=== PATIENT | male | born 1970 | race Caucasian/White ===

== ENCOUNTER 2016-12-16 02:11 | Emergency (ER) | payer MEDICAID ==
[2016-01-09 08:47] VITALS: BMI 30.4
[~2016-12-16 02:11] MED LIST: ASPIRIN325 MG PO; ASPIRIN81 MG PO; CARDIZEM120 MG PO; CARDURA2 MG PO; EFFIENT10 MG PO; LIPITOR10 MG PO; METOPROLOL TAR100 M1 PO; PLAVIX75 MG PO; PREDNISONE20 MG; XANAX1 MG PO; ZESTRIL40 MG PO
[2016-12-16 03:57] LABS: BASOPHILS 0.1 % (0.0-2.0); EOSINOPHILS 0.6 % (0-7); HEMATOCRIT 44.4 % (42.0-54.0); HEMOGLOBIN 15.9 g/dL (13.5-17.5); IMMATURE GRANULOCYTES 0.9 % (0-5); LYMPHOCYTES 12.6 % (15-50); MCH 31.8 pg (26.0-34.0); MCHC 35.8 g/dL (31.0-37.0); MCV 88.8 fL (80.0-100.0); MEAN PLATELET VOLUME 10.8 fL (7.4-10.4); MONOCYTES 6.8 % (2-11); RDW 13.3 % (11.5-14.5); WBC 12.4 10x3/uL (4.8-10.8)
[2016-12-16 04:04] LABS: PLATELET COUNT 146 10x3/uL (130-400)
[2016-12-16 04:10] LABS: ANION GAP 15.3 mmol/L (8-16); CALCIUM 8.3 mg/dL (8.5-10.1); CARBON DIOXIDE 23.4 mmol/L (21.0-32.0); CREATININE - SERUM 1.5 mg/dL (0.6-1.3); POTASSIUM - SERUM 3.7 mmol/L (3.5-5.1)
== END 2016-12-16 07:31 | disposition home or self-care (01) ==
LOC: D.ER 02:11
PROVIDERS: Emergency Medicine
DX: S40.021A Contusion of right upper arm, initial encounter (principal); V49.9XXA Car occupant (driver) (passenger) injured in unspecified traffic accident, initial encounter; Y93.89 Activity, other specified; Y92.410 Unspecified street and highway as the place of occurrence of the external cause; S20.219A Contusion of unspecified front wall of thorax, initial encounter; S62.202A Unspecified fracture of first metacarpal bone, left hand, initial encounter for closed fracture; S22.41XA Multiple fractures of ribs, right side, initial encounter for closed fracture; B19.20 Unspecified viral hepatitis C without hepatic coma; M79.7 Fibromyalgia; I10 Essential (primary) hypertension; F32.9 Major depressive disorder, single episode, unspecified

== ENCOUNTER 2016-12-21 15:53 | Emergency (ER) | payer MEDICAID ==
[2016-01-09 08:47] VITALS: BMI 30.4
[2016-12-21 19:29] LABS: CKMB 2.7 U/L (0.0-3.6); CREATINE KINASE 80 UL (21-232)
[2016-12-21 19:40] LABS: TROPONIN-I 0.071 ng/mL (0.000-0.060)
== END 2016-12-21 20:06 | disposition home or self-care (01) ==
LOC: D.ER 15:53
PROVIDERS: Emergency Medicine
DX: S22.41XG Multiple fractures of ribs, right side, subsequent encounter for fracture with delayed healing (principal); V89.2XXD Person injured in unspecified motor-vehicle accident, traffic, subsequent encounter; S20.211D Contusion of right front wall of thorax, subsequent encounter; S40.021D Contusion of right upper arm, subsequent encounter; S26.91XD Contusion of heart, unspecified with or without hemopericardium, subsequent encounter; B19.20 Unspecified viral hepatitis C without hepatic coma; I10 Essential (primary) hypertension; F32.9 Major depressive disorder, single episode, unspecified

== ENCOUNTER 2016-12-25 01:35 | Emergency (ER) | payer MEDICAID ==
[2016-01-09 08:47] VITALS: BMI 30.4
== END 2016-12-25 02:37 | disposition home or self-care (01) ==
LOC: D.ER 01:35
DX: K59.00 Constipation, unspecified (principal); K62.5 Hemorrhage of anus and rectum; B19.20 Unspecified viral hepatitis C without hepatic coma; I10 Essential (primary) hypertension; F32.9 Major depressive disorder, single episode, unspecified; F17.200 Nicotine dependence, unspecified, uncomplicated

== ENCOUNTER 2017-01-04 08:58 | Emergency (ER) | payer MEDICAID ==
[2016-01-09 08:47] VITALS: BMI 30.4
[2017-01-04 09:26] LABS: BASOPHILS 0.2 % (0.0-2.0); EOSINOPHILS 4.7 % (0-7); HEMATOCRIT 41.6 % (42.0-54.0); HEMOGLOBIN 14.3 g/dL (13.5-17.5); IMMATURE GRANULOCYTES 0.3 % (0-5); LYMPHOCYTES 15.5 % (15-50); MCH 31.4 pg (26.0-34.0); MCHC 34.4 g/dL (31.0-37.0); MCV 91.2 fL (80.0-100.0); MEAN PLATELET VOLUME 10.5 fL (7.4-10.4); MONOCYTES 8.4 % (2-11); NEUTROPHILS 70.9 % (40-80); PLATELET COUNT 164 10x3/uL (130-400); RBC 4.56 10x6/uL (4.20-6.10); WBC 9.6 10x3/uL (4.8-10.8)
[2017-01-04 09:43] LABS: ALBUMIN 3.7 g/dL (3.4-5.0); ANION GAP 14.5 mmol/L (8-16); BILIRUBIN - TOTAL 0.74 mg/dL (0.2-1.3); CALCIUM 8.8 mg/dL (8.5-10.1); CARBON DIOXIDE 29.2 mmol/L (21.0-32.0); CREATININE - SERUM 1.6 mg/dL (0.6-1.3); POTASSIUM - SERUM 3.7 mmol/L (3.5-5.1); PROTEIN - SERUM 7.2 g/dL (6.4-8.2)
== END 2017-01-04 11:35 | disposition home or self-care (01) ==
LOC: D.ER 08:58
PROVIDERS: Emergency Medicine
DX: S20.219A Contusion of unspecified front wall of thorax, initial encounter (principal); V89.2XXA Person injured in unspecified motor-vehicle accident, traffic, initial encounter; Y93.89 Activity, other specified; Y92.410 Unspecified street and highway as the place of occurrence of the external cause; S22.49XA Multiple fractures of ribs, unspecified side, initial encounter for closed fracture; J18.9 Pneumonia, unspecified organism; R73.9 Hyperglycemia, unspecified; B19.20 Unspecified viral hepatitis C without hepatic coma; I10 Essential (primary) hypertension

== ENCOUNTER → 2017-01-07 16:05 | Outpatient (CLI) | payer MEDICAID ==
[2016-01-09 08:47] VITALS: BMI 30.4
== END | disposition home or self-care (01) ==
LOC: D.RAD 16:05
DX: S22.43XA Multiple fractures of ribs, bilateral, initial encounter for closed fracture (principal)

== ENCOUNTER 2017-03-20 05:33 | Day surgery (SDC) | payer MEDICARE ==
[2017-03-19 12:36] LABS: HEMATOCRIT 46.8 % (42.0-54.0); HEMOGLOBIN 16.7 g/dL (13.5-17.5); MCH 31.1 pg (26.0-34.0); MCHC 35.7 g/dL (31.0-37.0); MCV 87.2 fL (80.0-100.0); MEAN PLATELET VOLUME 11.4 fL (7.4-10.4); RBC 5.37 10x6/uL (4.20-6.10); RDW 13.6 % (11.5-14.5); WBC 7.9 10x3/uL (4.8-10.8)
[~2017-03-20] VITALS: Ht 185.4 cm; Wt 108.9 kg
--- NOTE | ~2017-03-20 | OP ---
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 PROCEDURES PERFORMED: Left shoulder labral debridement, distal clavicle excision and subacromial decompression on to the scope. SURGEON: Mike Mendiola MD. ANESTHESIA: General interscalene block is given for postop pain. CONDITION: The patient tolerated the procedure well, was transferred to the recovery room in stable condition. INDICATIONS: This is a pleasant 46-year-old gentleman, who is having significant pain with overhead elevation. He has had no significant signs of a rotator cuff tear. He has not gotten any better. We discussed the options. He wanted to proceed with surgery. We discussed risks, benefits, and alternatives. He understood and wished to proceed. OPERATIVE REPORT: The patient was taken to the operating room and placed in supine position. General anesthesia was obtained. He did receive an interscalene block in the preop holding area. In the operating room, his left shoulder was confirmed to be the correct shoulder, following which it was prepped and draped in normal fashion. Procedure was begun by marking out portal sites and injecting them with 0.25% Marcaine with epinephrine. I established the scope in the posterior portal and under direct visualization, I established an anterior portal. He had some fairly significant labral fraying. I did debride this with a shaver. There was nothing that was repairable. The subscapularis was notably intact. Following the biceps tendon from its insertion down into the groove, everything looked good on the biceps tendon. I went back, followed the cuff, he had a little undersurface tear near the biceps hiatus, but I did not see anything further. Following the cuff all the around, it looked to be well attached. I therefore went back, took the scope out, placed it in the subacromial space, made a lateral portal, I debrided the soft tissue and bursa so I could see good undersurface of the acromion well. This was jutting down quite significantly as was undersurface of the AC joint. I therefore debrided both of these with a shaver and symone as well as cautery. Once this was well clear, I then brought the case to a close. He was stitched with 3-0 Prolene, awakened and transferred to the recovery room in stable condition having tolerated the procedure well. TRANSINT:[id number] Voice Confirmation ID: [id number] DOCUMENT ID: [id number] OPERATIVE REPORT [id number] FREDDIE SLOAN GORDON TROY MD CC: [id number] DICTATION DATE: 03/20/17802 WILLOW MACHINE TENDER: 03/20/17 1723 [facility] 03/20/17 [facility] [address] [place] [address]
[2017-03-20 05:54] VITALS: Ht 185.4 cm; Wt 108.9 kg
--- NOTE | 2017-03-20 07:32 | NUR ---
0648: PT STATED NO FAMILY PRESENT.
[2017-03-20] MEDS ORDERED: HYDROCODONE-APA1 TAB PO (07:55)
[2017-03-20] MEDS ORDERED: ROBAXIN-750750 MG PO (07:56)
--- NOTE | 2017-03-20 08:42 | NUR ---
PATIENT ARRIVED TO PACU WITH BP OF 164/116. 10 OF HYDRALAZINE GIVEN, BP DID NOT COME DOWN. ANOTHER 10 OF HYDRALAZINE GIVEN PER DR MOTA. BP PRE-OP BP 158/97
--- NOTE | 2017-03-20 10:40 | NUR ---
0930 IV DC WITH CATHER TIP INTACT
== END 2017-03-20 09:45 | disposition home or self-care (01) ==
LOC: D.OPS 05:33 → D.PAN 07:00 → D.OPS 08:15 → D.PAN 08:15 → D.OPS 09:45 → D.PAN 10:15 → D.OPS 10:15
PROVIDERS: Anesthesiology
DX: M75.42 Impingement syndrome of left shoulder (principal); S43.492A Other sprain of left shoulder joint, initial encounter; X58.XXXA Exposure to other specified factors, initial encounter; M19.012 Primary osteoarthritis, left shoulder; Z01.812 Encounter for preprocedural laboratory examination

== ENCOUNTER → 2017-06-03 09:20 | Outpatient (CLI) | payer MEDICARE ==
[2017-03-20 05:54] VITALS: BMI 31.7
[~2017-06-03 09:20] MED LIST changes: +HYDROCODONE-APA1 TAB PO; +ROBAXIN-750750 MG PO
== END | disposition home or self-care (01) ==
LOC: D.LAB 09:20
DX: R36.1 Hematospermia (principal)

== ENCOUNTER → 2017-06-25 11:03 | Outpatient (CLI) | payer MEDICARE ==
[2017-03-20 05:54] VITALS: BMI 31.7
== END | disposition home or self-care (01) ==
LOC: D.CT 11:03
DX: R31.21 Asymptomatic microscopic hematuria (principal)

== ENCOUNTER → 2017-07-03 15:06 | Outpatient (CLI) | payer MEDICARE ==
[2017-03-20 05:54] VITALS: BMI 31.7
== END | disposition home or self-care (01) ==
LOC: D.CT 15:06
DX: R31.9 Hematuria, unspecified (principal)

== ENCOUNTER 2017-08-06 16:44 | Emergency (ER) | payer MEDICARE ==
[2017-03-20 05:54] VITALS: BMI 31.7
== END 2017-08-06 20:20 | disposition home or self-care (01) ==
LOC: D.ER 16:44
DX: L03.314 Cellulitis of groin (principal); I50.9 Heart failure, unspecified; B19.20 Unspecified viral hepatitis C without hepatic coma

== ENCOUNTER 2017-08-29 01:51 | Emergency (ER) | payer MEDICARE ==
[2017-03-20 05:54] VITALS: BMI 31.7
[2017-08-29 03:01] LABS: BASOPHILS 0.1 % (0-2); EOSINOPHILS 1.4 % (0-7); HEMOGLOBIN 14.6 g/dL (13.5-17.5); IMMATURE GRANULOCYTES 0.5 % (0-5); MCH 32.7 pg (26.0-34.0); MCHC 35.6 g/dL (31.0-37.0); MCV 91.7 fL (80.0-100.0); MEAN PLATELET VOLUME 10.6 fL (7.4-10.4); MONOCYTES 11.9 % (2-11); NEUTROPHILS 59.1 % (40-80); PLATELET COUNT 108 10x3/uL (130-400); RBC 4.47 10x6/uL (4.20-6.10); RDW 13.2 % (11.5-14.5); WBC 9.3 10x3/uL (4.8-10.8)
== END 2017-08-29 03:52 | disposition home or self-care (01) ==
LOC: D.ER 01:51
PROVIDERS: Family Medicine
DX: L02.214 Cutaneous abscess of groin (principal)

== ENCOUNTER 2017-10-02 23:55 | Emergency (ER) | payer MEDICARE ==
[2017-03-20 05:54] VITALS: BMI 31.7
== END 2017-10-03 03:50 | disposition home or self-care (01) ==
LOC: D.ER 23:55
DX: S20.219A Contusion of unspecified front wall of thorax, initial encounter (principal); X58.XXXA Exposure to other specified factors, initial encounter; Y93.89 Activity, other specified; Y92.89 Other specified places as the place of occurrence of the external cause

== ENCOUNTER 2017-12-19 22:44 | Emergency (ER) | payer MEDICARE ==
[2017-03-20 05:54] VITALS: BMI 31.7
== END 2017-12-20 00:41 | disposition home or self-care (01) ==
LOC: D.ER 22:44
DX: K02.9 Dental caries, unspecified (principal); K08.89 Other specified disorders of teeth and supporting structures; I50.9 Heart failure, unspecified

== ENCOUNTER 2017-12-31 06:56 | Emergency (ER) | payer MEDICARE ==
[2017-03-20 05:54] VITALS: BMI 31.7
[2017-12-31 07:43] LABS: BASOPHILS 0.2 % (0-2); EOSINOPHILS 1.9 % (0-7); HEMATOCRIT 41.3 % (42.0-54.0); HEMOGLOBIN 14.3 g/dL (13.5-17.5); LYMPHOCYTES 16.1 % (15-50); MCH 31.1 pg (26.0-34.0); MCHC 34.6 g/dL (31.0-37.0); MCV 89.8 fL (80.0-100.0); MEAN PLATELET VOLUME 11.2 fL (7.4-10.4); MONOCYTES 8.5 % (2-11); NEUTROPHILS 73.3 % (40-80); PLATELET COUNT 121 10x3/uL (130-400); RDW 12.8 % (11.5-14.5); WBC 5.9 10x3/uL (4.8-10.8)
[2017-12-31 07:59] LABS: ALBUMIN 3.8 g/dL (3.4-5.0); ALKALINE PHOSPHATASE 88 U/L (46-116); ALT (SGPT) 30 U/L (10-68); CALC OSMOLALITY 280 mosm/kg (275-300); CALCIUM 8.5 mg/dL (8.5-10.1); CHLORIDE - SERUM 106 mmol/L (98-107); CREATININE - SERUM 1.3 mg/dL (0.6-1.3); POTASSIUM - SERUM 3.7 mmol/L (3.5-5.1); PROTEIN - SERUM 6.8 g/dL (6.4-8.2); SODIUM 138 mmol/L (136-145); UREA NITROGEN 22 mg/dL (7-18); eGFR NON AFRICAN AMERICAN 63 mL/min (90-120)
[2017-12-31 08:01] LABS: GLUCOSE 128 mg/dL (74-106)
[2017-12-31 08:11] LABS: CKMB 2.3 U/L (0.0-3.6); CREATINE KINASE 90 UL (21-232); PRO BNP 557 pg/mL (0-125); TROPONIN-I < 0.017 ng/mL (0.000-0.060)
[2017-12-31 08:25] LABS: APTT 28.3 SECONDS (22.8-39.4); INR 1.12 (0.85-1.17)
[2017-12-31 08:26] LABS: D-DIMER-QUANTITATIVE < 0.27 ug/mLFEU (0.20-0.54)
[2017-12-31 12:12] LABS: APPEARANCE CLEAR (CLEAR); BILIRUBIN NEGATIVE (NEGATIVE); COLOR YELLOW (YELLOW); GLUCOSE NEGATIVE (NEGATIVE); KETONE NEGATIVE (NEGATIVE); NITRITE NEGATIVE (NEGATIVE); PROTEIN NEGATIVE (NEGATIVE); SPECIFIC GRAVITY 1.015 (1.005-1.020); UROBILINOGEN NORMAL (NORMAL)
== END 2017-12-31 12:25 | disposition home or self-care (01) ==
LOC: D.ER 06:56
PROVIDERS: Family Medicine
DX: J18.9 Pneumonia, unspecified organism (principal); F10.10 Alcohol abuse, uncomplicated; B19.20 Unspecified viral hepatitis C without hepatic coma; I10 Essential (primary) hypertension; R00.1 Bradycardia, unspecified

== ENCOUNTER 2018-06-10 10:48 | Inpatient (IN) | payer MEDICARE ==
[~2018-06-10] VITALS: Ht 185.4 cm; Wt 100.9 kg
[2018-06-10] VITALS (40 sets, daily range): BP systolic 112–210; BP diastolic 62–133; Ht 185.4 cm; Wt 100.9 kg
--- NOTE | ~2018-06-10 | EC ---
PATIENT:FREDDIE SLOAN DATE OF SERVICE: 06/10/18 SEX: M MEDICAL RECORD: [id number] DATE OF : 74 LOCATION:D. D.211 AGE OF PATIENT: 47 ADMISSION DATE: 06/10/18 REFERRING PHYSICIAN: INTERPRETING PHYSICIAN: LIZZY REDDY MD ECHOCARDIOGRAM REPORT ECHO CHARGES 4 ECHO COMPLETE Date: 06/11 CLINICAL DIAGNOSIS: HTN CRISIS ECHOCARDIOGRAPHIC MEASUREMENTS (adult normal given) AC root (d.<3.7cm) 3.2 cm LV Septum d (<1.2 cm> 1.9 cm Valve Excursion 1.8 cm LV Septum (systole) 2.3 cm Left Atria (s.<4.0cm> 4.5 cm LVPW d(<1.2cm) 1.8 cm RV (d.<2.3cm) 2.7 cm LVPW (sytole) 2.0 cm LV diastole(<5.6CM) 5.8 cm MV E-F(>70mm/sec) cm LV systole 3.9 cm LVOT Diameter 2.0 cm MV exc.(>10mm) cm Est.ejection fraction (50-75%) % DOPPLER: LVIT cm/sec A 87.0 cm/sec E 50.0 cm/sec LA cm/sec RVSP 21.0 mmHg LVOT 117 cm/sec AOP1/2T m/s Asc. Ao 211 cm/sec RVOT 88.0 cm/sec RA cm/sec PA 103 cm/sec AV Gradient Peak 18.0 mmHg AV Mean 9.2 mmHg AV Area 1.8 cm MV Gradient Peak 6.0 mmHg MV Mean 1.7 mmHg MV Area cm COMMENTS: Airveyor Operator: Nestor [employer] Librarian: 3 Dr. Novak TAPE# PACS Pericardial Effusion N DATE OF SERVICE: 06/11/2018 PROCEDURE: Echocardiogram. FINDINGS: 1. Left ventricular chamber size is within normal limits. Left ventricular systolic function is normal. Overall ejection fraction estimated at 55%. 2. Left atrium is enlarged at 4.5 cm. Right atrium and right ventricle chamber sizes are as well mildly dilated. 3. Valvular structures have normal structure and motion. ECHOCARDIOGRAM REPORT [id number] FREDDIE SLOAN 4. Doppler interrogation reveals only trace tricuspid regurgitation, no other valvular insufficiency or stenosis and pulmonary systolic pressure is estimated at 21 mmHg. 5. No evidence of pericardial effusion or left ventricular thrombus. TRANSINT:[id number] Voice Confirmation ID: [id number] DOCUMENT ID: [id number] LZIZY REDDY MD at 1713 CC: [id number] DICTATION DATE: 06/14/18 1210 DERRICK FOLLOWER: 06/14/18 1222 DIS IN 06/14/18 [place] [id number] [place] [id number]
--- NOTE | ~2018-06-10 | CN ---
PATIENT NAME:FREDDIE SLOAN MEDICAL RECORD: [id number] : 74 LOCATION:D. D.2116 ADMIT DATE: 06/10/18 ACCOUNT: [id number] CONSULTING PHYSICIAN: ROSS AUSTIN MD REFERRING PHYSICIAN: RAULITO KENT DO DATE OF CONSULTATION: 06/11/2018 HISTORY OF PRESENT ILLNESS: A 47-year-old gentleman with known history of coronary artery disease status post intervention, dyslipidemia, hypertension. He was unable to get 2 of his prescriptions after his vehicle broke down. Had some vague chest and arm pain, pressure is currently improved markedly. Cardiac enzymes are negative. ECG shows LVH with no change from previous. Cardiac enzymes are negative so far. PAST MEDICAL HISTORY: 1. History of hypertension. 2. Hyperlipidemia. 3. Anxiety. 4. Coronary artery disease as described above. ALLERGIES: IODINE. HOME MEDICATIONS: Include metoprolol tartrate 100 mg p.o. daily, Plavix 75 every day, Cardura 2 every day, aspirin 325 every day, diltiazem 240 every day, lisinopril 40 every day, atorvastatin 10 every day. SOCIAL HISTORY: Smokes less than a pack a day. Does use marijuana to help with pain and anxiety control. Social drinker. REVIEW OF SYSTEMS: The patient reports easy bruising but reports no swollen glands. The patient reports no fever, no night sweats, no significant weight gain, no significant weight loss. No significant exercise tolerance. The patient reports no dry eyes, no irritation, no vision change. Patient reports no difficulty hearing and no ear pain. Patient reports no frequent nose bleeds or nose and sinus problems. Patient reports on arm pain on exertion. No shortness of breath while lying down. No history of heart murmur. Patient reports no cough, no wheezing or coughing up blood. Patient reports no abdominal pain, no vomiting. Normal appetite. No diarrhea and not vomiting blood. No nausea and no constipation. Patient reports no incontinence. No difficulty urinating. No hematuria. No increased frequency. Patient reports no muscle aches. No weakness, no arthralgias, no back pain. No swelling of the extremities. Patient reports no abnormal mole, no jaundice, no rashes. Reports no loss of consciousness. No weakness and no numbness. No seizures, dizziness, or headaches. The patient reports no depression, no sleep disturbance, feeling safe in a relationship and no alcohol abuse. Patient reports on fatigue. Reports no runny nose or sinus pressure. No itching, no hives, and no frequent sneezing. PHYSICAL EXAMINATION: GENERAL: Pleasant gentleman in no acute distress. VITAL SIGNS: Currently, blood pressure 158/111, pulse 85 and regular. HEENT: Normocephalic, atraumatic. NECK: No JVD or bruit. HEART: Regular, S4 gallop is noted. LUNGS: Demarco clear. CONSULT REPORT [id number] FREDDIE SLOAN ABDOMEN: Soft, nontender. EXTREMITIES: Pulses 2+. There is no edema. DIAGNOSTIC DATA: Cardiac enzymes are negative. ECG without acute change. IMPRESSION: Hypertensive urgency. Restart home medications except change metoprolol to carvedilol. We will add a thiazide diuretic as well to help with this salt control. Further recommendations based on the above. TRANSINT:[id number] Voice Confirmation ID: [id number] DOCUMENT ID: [id number] ROSS AUSTIN MD at 1505 CC: [id number] DICTATION DATE: 06/11/18 1336 DELIVERY OF SHOPPING NEWS: 06/11/18 1506 DIS [place] 06/14/18 [place] [id number] [place] [address]
[2018-06-10] MEDS ORDERED: CARTIA XT240 MG PO (10:55)
[2018-06-10 11:26] LABS: BASOPHILS 0.1 % (0-2); EOSINOPHILS 0.8 % (0-7); HEMATOCRIT 44.1 % (42.0-54.0); HEMOGLOBIN 16.1 g/dL (13.5-17.5); IMMATURE GRANULOCYTES 0.6 % (0-5); LYMPHOCYTES 25.5 % (15-50); MCH 31.9 pg (26.0-34.0); MCHC 36.5 g/dL (31.0-37.0); MCV 87.5 fL (80.0-100.0); MONOCYTES 7.7 % (2-11); NEUTROPHILS 65.3 % (40-80); PLATELET COUNT 104 10x3/uL (130-400); RBC 5.04 10x6/uL (4.20-6.10); RDW 13.6 % (11.5-14.5); WBC 8.8 10x3/uL (4.8-10.8)
[2018-06-10 11:34] LABS: APTT 29.3 SECONDS (22.8-39.4); INR 1.09 (0.85-1.17); PROTIME 13.7 SECONDS (11.6-15.0)
[2018-06-10 11:36] LABS: D-DIMER-QUANTITATIVE < 0.27 ug/mLFEU (0.20-0.54)
[2018-06-10 11:39] LABS: ALBUMIN 3.9 g/dL (3.4-5.0); ALKALINE PHOSPHATASE 110 U/L (46-116); ALT (SGPT) 35 U/L (10-68); BILIRUBIN - TOTAL 1.01 mg/dL (0.2-1.3); CALC OSMOLALITY 281 mosm/kg (275-300); CALCIUM 8.8 mg/dL (8.5-10.1); CARBON DIOXIDE 27.6 mmol/L (21.0-32.0); CHLORIDE - SERUM 105 mmol/L (98-107); CREATININE - SERUM 1.2 mg/dL (0.6-1.3); GLUCOSE 100 mg/dL (74-106); POTASSIUM - SERUM 4.2 mmol/L (3.5-5.1); PROTEIN - SERUM 7.4 g/dL (6.4-8.2); SODIUM 140 mmol/L (136-145); UREA NITROGEN 21 mg/dL (7-18); eGFR NON AFRICAN AMERICAN 69 mL/min (90-120)
[2018-06-10 11:51] LABS: CREATINE KINASE 155 UL (21-232); MAGNESIUM - SERUM 2.2 mg/dL (1.8-2.4); PRO BNP 649 pg/mL (0-125)
[2018-06-10 11:53] LABS: TROPONIN-I < 0.017 ng/mL (0.000-0.060)
[2018-06-10 16:13] LABS: CKMB 1.6 U/L (0.0-3.6); CREATINE KINASE 103 UL (21-232)
[2018-06-10 16:14] LABS: TROPONIN-I < 0.017 ng/mL (0.000-0.060)
[2018-06-10 21:23] LABS: CKMB 1.4 U/L (0.0-3.6); CREATINE KINASE 88 UL (21-232); TROPONIN-I < 0.017 ng/mL (0.000-0.060)
[2018-06-11] VITALS (98 sets, daily range): BP systolic 123–178; BP diastolic 70–131
[2018-06-11 03:07] LABS: BASOPHILS 0.1 % (0-2); HEMATOCRIT 47.1 % (42.0-54.0); HEMOGLOBIN 16.9 g/dL (13.5-17.5); IMMATURE GRANULOCYTES 0.3 % (0-5); LYMPHOCYTES 20.5 % (15-50); MCH 31.8 pg (26.0-34.0); MCHC 35.9 g/dL (31.0-37.0); MCV 88.7 fL (80.0-100.0); MEAN PLATELET VOLUME 11.9 fL (7.4-10.4); MONOCYTES 8.7 % (2-11); NEUTROPHILS 69.4 % (40-80); PLATELET COUNT 115 10x3/uL (130-400); RBC 5.31 10x6/uL (4.20-6.10); RDW 13.7 % (11.5-14.5); WBC 9.2 10x3/uL (4.8-10.8)
[2018-06-11 03:41] LABS: ALBUMIN 3.8 g/dL (3.4-5.0); ALKALINE PHOSPHATASE 111 U/L (46-116); ALT (SGPT) 31 U/L (10-68); BILIRUBIN - TOTAL 1.01 mg/dL (0.2-1.3); CALC OSMOLALITY 285 mosm/kg (275-300); CALCIUM 8.5 mg/dL (8.5-10.1); CARBON DIOXIDE 30.3 mmol/L (21.0-32.0); CHLORIDE - SERUM 105 mmol/L (98-107); CKMB 1.6 U/L (0.0-3.6); CREATINE KINASE 73 UL (21-232); CREATININE - SERUM 1.3 mg/dL (0.6-1.3); GLUCOSE 103 mg/dL (74-106); POTASSIUM - SERUM 3.7 mmol/L (3.5-5.1); PROTEIN - SERUM 7.1 g/dL (6.4-8.2); SODIUM 142 mmol/L (136-145); TROPONIN-I 0.017 ng/mL (0.000-0.060); UREA NITROGEN 20 mg/dL (7-18); eGFR NON AFRICAN AMERICAN 63 mL/min (90-120)
[2018-06-11 18:18] LABS: UDS - AMPHET NEGATIVE QUAL (NEGATIVE); UDS - BARB NEGATIVE QUAL (NEGATIVE); UDS - BENZO NEGATIVE QUAL (NEGATIVE); UDS - COCAINE NEGATIVE QUAL (NEGATIVE); UDS - OPIATE NEGATIVE QUAL (NEGATIVE); UDS - PCP NEGATIVE QUAL (NEGATIVE); UDS - THC POSITIVE QUAL (NEGATIVE)
[2018-06-12] VITALS (76 sets, daily range): BP systolic 115–165; BP diastolic 70–118
[2018-06-12 04:44] LABS: BASOPHILS 0.1 % (0-2); HEMATOCRIT 46.9 % (42.0-54.0); HEMOGLOBIN 16.9 g/dL (13.5-17.5); IMMATURE GRANULOCYTES 0.3 % (0-5); LYMPHOCYTES 19.8 % (15-50); MCH 31.9 pg (26.0-34.0); MCV 88.7 fL (80.0-100.0); MEAN PLATELET VOLUME 12.1 fL (7.4-10.4); MONOCYTES 9.9 % (2-11); NEUTROPHILS 68.9 % (40-80); PLATELET COUNT 118 10x3/uL (130-400); RBC 5.29 10x6/uL (4.20-6.10); RDW 13.7 % (11.5-14.5); WBC 8.9 10x3/uL (4.8-10.8)
[2018-06-12 04:53] LABS: ALBUMIN 3.7 g/dL (3.4-5.0); ANION GAP 7.5 mmol/L (8-16); BILIRUBIN - TOTAL 0.99 mg/dL (0.2-1.3); CALCIUM 8.7 mg/dL (8.5-10.1); CARBON DIOXIDE 28.6 mmol/L (21.0-32.0); CREATININE - SERUM 1.3 mg/dL (0.6-1.3)
[2018-06-12 04:58] LABS: POTASSIUM - SERUM 3.1 mmol/L (3.5-5.1)
[2018-06-12 11:26] LABS: T4 THYROXIN - FREE 1.01 ng/dL (0.76-1.46); THYROID STIMULATING HORMONE 0.78 uIU/mL (0.36-3.74)
[2018-06-13] VITALS (21 sets, daily range): BP systolic 107–170; BP diastolic 65–100
[2018-06-13 03:03] LABS: BASOPHILS 0.1 % (0-2); EOSINOPHILS 1.2 % (0-7); HEMATOCRIT 46.4 % (42.0-54.0); HEMOGLOBIN 16.3 g/dL (13.5-17.5); IMMATURE GRANULOCYTES 0.4 % (0-5); LYMPHOCYTES 24.7 % (15-50); MCH 31.3 pg (26.0-34.0); MCHC 35.1 g/dL (31.0-37.0); MCV 89.2 fL (80.0-100.0); NEUTROPHILS 63.6 % (40-80); PLATELET COUNT 121 10x3/uL (130-400); RDW 13.5 % (11.5-14.5); WBC 9.9 10x3/uL (4.8-10.8)
[2018-06-13 03:07] LABS: ANION GAP 11.6 mmol/L (8-16); CALCIUM 8.5 mg/dL (8.5-10.1); CARBON DIOXIDE 27.2 mmol/L (21.0-32.0); CREATININE - SERUM 1.3 mg/dL (0.6-1.3)
[2018-06-13 03:16] LABS: POTASSIUM - SERUM 3.8 mmol/L (3.5-5.1)
[2018-06-14 00:30] VITALS: BP 131/93
[2018-06-14 03:54] LABS: BASOPHILS 0.1 % (0-2); EOSINOPHILS 1.4 % (0-7); HEMATOCRIT 43.2 % (42.0-54.0); HEMOGLOBIN 15.4 g/dL (13.5-17.5); IMMATURE GRANULOCYTES 0.3 % (0-5); LYMPHOCYTES 26.7 % (15-50); MCH 31.7 pg (26.0-34.0); MCHC 35.6 g/dL (31.0-37.0); MCV 88.9 fL (80.0-100.0); MONOCYTES 10.8 % (2-11); NEUTROPHILS 60.7 % (40-80); PLATELET COUNT 106 10x3/uL (130-400); RBC 4.86 10x6/uL (4.20-6.10); RDW 13.7 % (11.5-14.5)
[2018-06-14 04:09] LABS: ANION GAP 10.6 mmol/L (8-16); CALCIUM 8.4 mg/dL (8.5-10.1); CARBON DIOXIDE 30.1 mmol/L (21.0-32.0); CREATININE - SERUM 1.4 mg/dL (0.6-1.3); POTASSIUM - SERUM 3.7 mmol/L (3.5-5.1)
[2018-06-14 04:30] VITALS: BP 123/83
[2018-06-14] MEDS ORDERED: COREG12.5 MG PO (07:52)
[2018-06-14 08:46] VITALS: BP 165/107
[2018-06-14 11:45] VITALS: BP 169/93
== END 2018-06-14 15:18 | disposition home or self-care (01) | DRG 305 ==
LOC: D.ER 10:48 → D.M2 15:51 → D.ICU 15:51 → D.M2 06-13 13:01
PROVIDERS: Family Medicine
DX: I16.9 Hypertensive crisis, unspecified (principal); I12.9 Hypertensive chronic kidney disease with stage 1 through stage 4 chronic kidney disease, or unspecified chronic kidney disease; N18.9 Chronic kidney disease, unspecified; Z72.0 Tobacco use; E11.9 Type 2 diabetes mellitus without complications; I25.10 Atherosclerotic heart disease of native coronary artery without angina pectoris; K21.9 Gastro-esophageal reflux disease without esophagitis; T50.906A Underdosing of unspecified drugs, medicaments and biological substances, initial encounter

== ENCOUNTER 2018-09-03 18:05 | Emergency (ER) | payer MEDICARE ==
[~2018-09-03] VITALS: Ht 185.4 cm; Wt 104.5 kg
[~2018-09-03 18:05] MED LIST changes: +CARTIA XT240 MG PO; +COREG12.5 MG PO
[2018-09-03 18:11] VITALS: Ht 185.4 cm; Wt 104.5 kg
[2018-09-03 18:38] LABS: BASOPHILS 0.1 % (0-2); EOSINOPHILS 1.6 % (0-7); HEMATOCRIT 41.6 % (42.0-54.0); HEMOGLOBIN 15.2 g/dL (13.5-17.5); IMMATURE GRANULOCYTES 0.1 % (0-5); LYMPHOCYTES 22.4 % (15-50); MCH 32.5 pg (26.0-34.0); MCHC 36.5 g/dL (31.0-37.0); MCV 88.9 fL (80.0-100.0); MEAN PLATELET VOLUME 10.7 fL (7.4-10.4); MONOCYTES 4.6 % (2-11); NEUTROPHILS 71.2 % (40-80); PLATELET COUNT 105 10x3/uL (130-400); RBC 4.68 10x6/uL (4.20-6.10); RDW 13.4 % (11.5-14.5); WBC 8.3 10x3/uL (4.8-10.8)
[2018-09-03 18:54] LABS: ALBUMIN 4.1 g/dL (3.4-5.0); ALKALINE PHOSPHATASE 96 U/L (46-116); ALT (SGPT) 26 U/L (10-68); BILIRUBIN - TOTAL 0.73 mg/dL (0.2-1.3); CALC OSMOLALITY 288 mosm/kg (275-300); CALCIUM 8.5 mg/dL (8.5-10.1); CARBON DIOXIDE 26.2 mmol/L (21.0-32.0); CHLORIDE - SERUM 105 mmol/L (98-107); CREATININE - SERUM 1.5 mg/dL (0.6-1.3); POTASSIUM - SERUM 3.5 mmol/L (3.5-5.1); PROTEIN - SERUM 7.3 g/dL (6.4-8.2); SODIUM 142 mmol/L (136-145); UREA NITROGEN 20 mg/dL (7-18); eGFR NON AFRICAN AMERICAN 54 mL/min (90-120)
[2018-09-03 19:02] LABS: GLUCOSE 152 mg/dL (74-106)
[2018-09-03 19:04] LABS: CKMB 1.5 U/L (0.0-3.6); CREATINE KINASE 123 UL (21-232)
[2018-09-03 19:05] LABS: TROPONIN-I < 0.017 ng/mL (0.000-0.060)
[2018-09-03 20:30] VITALS: BP 161/100
== END 2018-09-03 21:30 ==
LOC: D.ER 18:05
PROVIDERS: Family Medicine
DX: R07.9 Chest pain, unspecified (principal); I10 Essential (primary) hypertension; F90.9 Attention-deficit hyperactivity disorder, unspecified type; F98.8 Other specified behavioral and emotional disorders with onset usually occurring in childhood and adolescence; K21.9 Gastro-esophageal reflux disease without esophagitis

== ENCOUNTER → 2018-09-09 10:41 | Outpatient (CLI) | payer MEDICARE ==
[2018-09-03 18:11] VITALS: BMI 30.4
== END | disposition home or self-care (01) ==
LOC: D.US 10:41
DX: N18.3 Chronic kidney disease, stage 3 (moderate) (principal); Z68.32 Body mass index [BMI] 32.0-32.9, adult

== ENCOUNTER 2018-11-05 08:18 | Emergency (ER) | payer MEDICARE ==
[~2018-11-05] VITALS: Ht 185.4 cm; Wt 115.9 kg
[2018-11-05 08:30] VITALS: Ht 185.4 cm; Wt 115.9 kg
[2018-11-05 10:20] VITALS: BP 165/101
[2018-11-05] MEDS ORDERED: HYDROCHLOROTHIA25 MG PO (20:45)
[2018-11-05] MEDS ORDERED: TORADOL10 MG PO (23:12)
[2018-11-05] MEDS ORDERED: NEURONTIN 300300 MG PO (23:12)
== END 2018-11-05 10:20 | disposition home or self-care (01) ==
LOC: D.ER 08:18
DX: M25.511 Pain in right shoulder (principal); I10 Essential (primary) hypertension

== ENCOUNTER 2018-11-05 20:22 | Emergency (ER) | payer MEDICARE ==
[~2018-11-05] VITALS: Ht 185.4 cm; Wt 115.9 kg
[2018-11-05 20:42] VITALS: Ht 185.4 cm; Wt 115.9 kg
[2018-11-05] MEDS ORDERED: HYDROCHLOROTHIA25 MG PO (20:45)
[2018-11-05 22:37] LABS: BASOPHILS 0.2 % (0-2); EOSINOPHILS 0.5 % (0-7); HEMATOCRIT 42.6 % (42.0-54.0); HEMOGLOBIN 15.5 g/dL (13.5-17.5); IMMATURE GRANULOCYTES 0.9 % (0-5); LYMPHOCYTES 13.2 % (15-50); MCHC 36.4 g/dL (31.0-37.0); MCV 87.8 fL (80.0-100.0); MEAN PLATELET VOLUME 11.2 fL (7.4-10.4); MONOCYTES 6.9 % (2-11); NEUTROPHILS 78.3 % (40-80); PLATELET COUNT 121 10x3/uL (130-400); RBC 4.85 10x6/uL (4.20-6.10); RDW 13.6 % (11.5-14.5); WBC 11.9 10x3/uL (4.8-10.8)
[2018-11-05 22:55] LABS: ALKALINE PHOSPHATASE 100 U/L (46-116); ALT (SGPT) 26 U/L (10-68); BILIRUBIN - TOTAL 0.65 mg/dL (0.2-1.3); CALC OSMOLALITY 283 mosm/kg (275-300); CALCIUM 9.2 mg/dL (8.5-10.1); CARBON DIOXIDE 29.1 mmol/L (21.0-32.0); CHLORIDE - SERUM 102 mmol/L (98-107); CREATININE - SERUM 1.4 mg/dL (0.6-1.3); GLUCOSE 121 mg/dL (74-106); POTASSIUM - SERUM 4.1 mmol/L (3.5-5.1); PROTEIN - SERUM 7.5 g/dL (6.4-8.2); SODIUM 140 mmol/L (136-145); UREA NITROGEN 25 mg/dL (7-18); eGFR NON AFRICAN AMERICAN 58 mL/min (90-120)
[2018-11-05 22:57] LABS: TROPONIN-I < 0.017 ng/mL (0.000-0.060)
[2018-11-05] MEDS ORDERED: NEURONTIN 300300 MG PO (23:12)
[2018-11-05] MEDS ORDERED: TORADOL10 MG PO (23:12)
[2018-11-05 23:25] VITALS: BP 170/94
== END 2018-11-05 23:25 | disposition home or self-care (01) ==
LOC: D.ER 20:22
PROVIDERS: Emergency Medicine
DX: M54.2 Cervicalgia (principal); Z86.79 Personal history of other diseases of the circulatory system; I10 Essential (primary) hypertension; N28.9 Disorder of kidney and ureter, unspecified; E11.9 Type 2 diabetes mellitus without complications; I11.0 Hypertensive heart disease with heart failure; I50.9 Heart failure, unspecified; F17.200 Nicotine dependence, unspecified, uncomplicated

== ENCOUNTER 2019-03-10 03:30 | Inpatient (IN) | payer MEDICARE ==
[~2019-03-10] VITALS: Ht 185.4 cm; Wt 122.7 kg
--- NOTE | ~2019-03-10 | HEMODYNAMI ---
PATIENT:FREDDIE SLOAN MEDICAL RECORD: [id number] : 74 LOCATION:[facility] D.2121 ADMISSION DATE: 03/10/19 Generatedon:03/10/201915:45 Patient name: FREDDIE SLOAN Patient #: [id number] SSN: : 1970 Date of study: 03/10/2019 Page: Of Hemodynamic Procedure Report Patient Data Patient Demographics Procedure consent was obtained First Name: FREDDIE Gender: Male Last Name: NATHALIA : 1970 [facility] Initial: SUNSHINE Age: 48 year(s) Patient #: [id number] Race: Unknown Additional ID: [id number] Contact details Address: [address] [place] [address] State: [place] City: [place] Zip code: [address] Past Medical History Allergies Allergen Reaction Date Comments Reported Other allergy 11/21/2014 Shrimp Iodine 07/30/2015 Shellfish 07/30/2015 Admission Admission Data Admission Date: 03/10/2019 Admission Time: 5:04 Room #: D.2121 Height (in.): 73 BSA: 2.46 (m2) Height (cm.): 185.42 BMI: 36.28 (kg/m2) Weight (lbs.): 274.96 Weight (kg.): 124.72 Lab Results Lab Result Date: 03/10/2019 Lab Result Time: 0:00 Biochemistry Name Units Result Min Max BUN mg/dl 21 --(----)-* 7 18 Creatinine mg/dl 1.6 --(----)-* 0.6 1.3 CBC Name Units Result Min Max Hemoglobin g/dl 14.1 --(*---)-- 13.5 17.5 Procedure Procedure Types Cath Procedure Diagnostic Procedure LHC [facility] w/Coronaries Sedation Charges Moderate Sedation up to 15 minutes PCI Procedure PTCA PTCA Initial Procedure Description Procedure Date Procedure Date: 03/10/2019 Procedure Start Time: 15:21 Procedure End Time: 15:41 Procedure Staff Name Function Daya Reyes MD Ordering physician Jake Espinoza MD Performing Physician Magaly Smith RT Monitor Basilia Castellanos RN Nurse Penelope Siddiqi RT Scrub Procedure Data Cath Procedure Fluoroscopy Diagnostic fluoroscopy Total fluoroscopy Time: 7.6 time: 7.6 min min Diagnostic fluoroscopy Total fluoroscopy dose: dose: 1122 mGy 1122 mGy Contrast Material Contrast Material Type Amount (ml) Isovue 300 81 Entry Location Entry Primary Successful Side Size Upsize Upsize Entry Closure Lopez ccessful Closure Location (Fr) 1 (Fr) 2 (Fr) Remarks Device Remarks Radial Right 6 Fr Mechanical artery Short Compression Estimated blood loss: 5 ml Diagnostic catheters Device Type Used For End Catheter Placement DIAGNOSTIC [place] 110cm 5 Multi-vessel Fr catheter ([id number]) Angiography Procedure Complications No complications Procedure Medications Medication Administration Route Dosage 0.9% NaCl I.V. 100 ml/hr Oxygen etCO2 Nasal cannula 2 l/min Lidocaine 2% added to field 20 Heparin Flush Bag added to field 2 bags (1000units/500ml NS) Versed I.V. 2 mg Fentanyl I.V. 50 mcg Radial Cocktail added to field 1 syringe (Verapomil 2mg/Nitro 400mcg/Heparin 1500units) Versed I.V. 2 mg Fentanyl I.V. 50 mcg Versed I.V. 2 mg Fentanyl I.V. 50 mcg Heparin Bolus I.V. 5000 units Lopressor I.V. 5 mg Hemodynamics Rest BSA: 2.46 (m2) O2 Consumption: Estimated: 310.51 (ml/min) O2 Consumption indexed : Estimated:126.22 (ml/min/m) Heart Rate: 85 (bpm) Pressure Samples Time Site Value (mmHg) Purpose Heart Use Rate(bpm) 15:29 LV 148/12,14 Snapshot 97 Gradients Valve Time Site Site Mean SEP/DFP Peak To Heart Use 1 2 (mmHg) (sec/min) Peak Rate (mmHg) (bpm) Aortic 15:29 LV AO 85 Snapshots Pre Cath Intra NCS Post Cath Vital Signs Time Heart Resp SPO2 etCO2 NIBP (mmHg) Rhythm Pain Sedation Rate (ipm) (%) (mmHg) Status Level (bpm) 15:13:25 85 12 96 31.9 Measuring NSR 0 (11) 10(A) , No pain 15:18:30 73 17 97 17 196/121(184) NSR 0 (11) 10(A) , No pain 15:23:13 85 16 97 23 184/118(150) NSR 0 (11) 9(A) , No pain 15:27:39 86 17 98 37.9 175/112(145) NSR 0 (11) 10(A) , No pain 15:32:11 83 17 97 24.5 153/109(143) NSR 0 (11) 10(A) , No pain 15:36:36 81 20 97 38.6 172/114(147) NSR 0 (11) 10(A) , No pain 15:41:59 80 26 98 43.8 172/105(143) NSR 0 (11) 10(A) , No pain Medications Time Medication Route Dose Verified Delivered Reason Not es Effectiveness by by 15:10:46 0.9% NaCl I.V. 100 Jake Basilia used for ml/hr [facility] procedure MD CALL 15:10:53 Oxygen etCO2 2 l/min Jake Basilia used for Nasal [facility] procedure cannula MD CALL 15:10:58 Lidocaine 2% added 20ml Jake Joseph for local to vial [facility] anesthetic field MD BLAND 15:11:02 Heparin Flush added 2 bags Jake Joseph used for Bag to [facility] procedure (1000units/500ml field MD BLAND NS) 15:13:01 Fentanyl I.V. 50 mcg Jake Basilia for sedation [facility] Castellanos MD, RN 15:13:50 Versed I.V. 2 mg Jake Baislia for sedation [facility] Castellanos MD, RN 15:18:10 Versed I.V. 2 mg Jake Joseph for sedation [facility] Espinoza MD, MD 15:18:16 Fentanyl I.V. 50 mcg Jake Queenory for sedation [facility] Espinoza MD, MD 15:21:06 Radial Cocktail added 1 Jake Joseph used for (Verapomil to syringe [facility] procedure 2mg/Nitro field MD BLAND 400mcg/Heparin 1500units) 15:31:29 Versed I.V. 2 mg Jake Queenory for sedation [facility] Espinoza MD, MD 15:31:33 Fentanyl I.V. 50 mcg Jake Joseph for sedation OlgaNick Espinoza MD, MD 15:33:58 Heparin Bolus I.V. 5000 Jake Basilia for units Olga Emanuel anticoagulation MD RN 15:36:10 Lopressor I.V. 5 mg Jake Cortez hypertension hand hide stretcher Log Time Note 14:47:17 Patient Height : 73 inches 14:47:28 Patient Weight : 274.96 lbs 14:48:37 Lab Result : Hemoglobin 14.1 g/dl 14:48:37 Lab Result : Creatinine 1.6 mg/dl 14:48:37 Lab Result : BUN 21 mg/dl 14:49:29 Diagnostic Cath status Elective 14:49:35 Basilia Castellanos RN sent for patient. Start room use. 14:49:37 Time tracking: Regular hours (M-F 7:00 - 5:00) 14:49:43 Plan of Care:Hemodynamics will remain stable., Cardiac rhythm will remain stable., Comfort level will be maintained., Respiratory function will remain adequate., Patient/ family verbilizes understanding of procedure., Procedure tolerated without complication., Recovers from procedure without complications.. 14:49:50 Patient received from Med II to CCL 1 Alert and oriented. Tansferred to table in Supine position. 14:56:48 Warm blankets applied, and stalin hugger turned on for patient comfort. 14:56:49 Correct patient and procedure confirmed by team. 14:56:51 Signed procedure consent form obtained from patient. 15:00:38 ECG and BP/O2 sat monitors applied to patient. 15:07:37 Vital chart was started 15:07:46 Full Disclosure recording started 15:07:55 H&P Date Dictated: 03/09/2019 Within 30 days and on chart.. 15:07:57 Pre-procedure instructions explained to patient. 15:08:00 Family in waiting room. 15:08:02 Patient NPO since Midnight. 15:10:46 0.9% NaCl 100 ml/hr I.V. was administered by Basilia Castellanos RN; used for procedure; 15:10:53 Oxygen 2 l/min etCO2 Nasal cannula was administered by Basilia Castellanos RN; used for procedure; 15:10:58 Lidocaine 2% 20ml vial added to field was administered by Jake Espinoza MD; for local anesthetic; 15:11:02 Heparin Flush Bag (1000units/500ml NS) 2 bags added to field was administered by Jake Espinoza MD; used for procedure; 15:11:54 Is the patient allergic to Iodine/contrast media? No. 15:11:54 Was the patient premedicated? No 15:11:55 Is patient on blood thinner?Yes 15:11:58 ACC The patient was administered the following blood thiners within the last 24 hours: ACCPlavix 15:12:02 Patient diabetic? No. 15:12:05 Previous problem with sedation/anesthesia? No ? 15:12:07 Snore? Yes 15:12:08 Sleep apnea? No 15:12:10 Deviated septum? No 15:12:11 Opens mouth fully? Yes 15:12:12 Sticks out tongue? Yes 15:12:14 Airway obstruction? No ? 15:12:17 Dentures? No ? 15:12:26 Pre procedure: right posterior tibial pulse 2+ Normal; easily identifiable; not easily obliterated 15:12:29 Pre procedure: left posterior tibial pulse 2+ Normal; easily identifiable; not easily obliterated 15:12:32 Patient pain scale 0/10 ?. 15:12:41 IV patent on arrival in left forearm with 0.9% NaCl at [facility]. 15:12:44 Lab results completed and on chart. 15:12:49 Right Radial & Right Groin area was prepped with chlora-prep and draped in sterile fashion 15:12:50 Alarms reviewed by R. N. 15:12:50 Sharps counted by scrub and verified by R.N. 15:12:52 Physician arrived 15:12:53 --------ALL STOP TIME OUT------ 15:12:53 Final Timeout: patient, procedure, and site verified with staff and physician. All members of the team are in agreement. 15:12:55 Right Radial & Right Groin site verified by team. 15:12:59 Maximum allowable Isovue 370 dose 300ml. Physician notified. (300ml for normal creatinines. For patients with creatinine of 1.7 or higher multiply weight(kg) x 5 divided by creatinine.) 15:13:01 Fentanyl 50 mcg I.V. was administered by Basilia Castellanos RN; for sedation; 15:13:11 Fire Safety Assessment: A--An alcohol-based skin anteseptic being used preoperatively., C--Open oxygen or nitrous oxide is being used., D--An ESU, laser, or fiber-optic light is being used. 15:13:16 Physical assessment completed. ASA score P 2 - A patient with mild systemic disease as per Jake Espinoza MD. 15:13:20 Sedation plan: IV Moderate Sedation Medication:Versed, Fentanyl 15:13:40 Use device set Radial Dx or PCI 15:13:41 ACIST Syringe (69339) opened to sterile field. 15:13:41 Medline Cath Pack ([id number]) opened to sterile field. 15:13:42 Bag Decanter (2002S) opened to sterile field. 15:13:42 DIAGNOSTIC WIRE .035 260cm J wire (958094) opened to sterile field. 15:13:42 ACIST Hand Control (44133) opened to sterile field. 15:13:43 ACIST Manifold (40655) opened to sterile field. 15:13:43 Tegaderm 4 x 4 (1626W) opened to sterile field. 15:13:44 MBrace Wrist Support ([id number]) opened to sterile field. 15:13:45 SHEATH 6FR Slender (06-8866) opened to sterile field. 15:13:50 Versed 2 mg I.V. was administered by Basilia Castellanos RN; for sedation; 15:18:10 Versed 2 mg I.V. was administered by Jake Espinoza MD; for sedation; 15:18:16 Fentanyl 50 mcg I.V. was administered by Jake Espinoza MD; for sedation; 15:21:06 Radial Cocktail (Verapomil 2mg/Nitro 400mcg/Heparin 1500units) 1 syringe added to field was administered by Jake Espinoza MD; used for procedure; 15:21:22 Procedure started. 15:21:38 Local anesthetic to right radial artery with Lidocaine 2% by Jake Espinoza MD.INITIAL ACCESS ONLY 15:21:59 A 6 Fr Short sheath was inserted into the Right Radial artery 15:22:05 Baseline sample Acquired. 15:23:27 A DIAGNOSTIC [place] 110cm 5 Fr catheter (955353) was advanced over the wire and used for Multi-vessel Angiography. 15:25:33 RCA angiography performed. 15:25:51 Injector settings: Ml/sec: 3, Volume: 6, 15:26:05 LCA angiography performed. 15:26:41 Injector settings: Ml/sec: 3, Volume: 6, 15:28:12 INFLATOR Merit BasixCompak (CU1674) opened to sterile field. 15:28:13 WHISPER 300cm guide wire ([id number]) opened to sterile field. 15:28:48 GUIDE 6FR HS II SH catheter (IN1RRSVCR) opened to sterile field. 15:29:40 LV hemodynamics recorded. 15::42 LV gram done using AUGUSTE 15::44 Injector settings: Ml/sec: 5, Volume: 15, 15:29:51 EF : 55 % 15:30:01 Catheter removed. 15:30:02 Proceeding to intervention. 15:30:16 6 Fr hs 2 sh guide catheter was inserted over the wire 15:30:54 whispessr wire advanced. 15:31:29 Versed 2 mg I.V. was administered by Jake Espinoza MD; for sedation; 15:31:33 Fentanyl 50 mcg I.V. was administered by Jake Espinoza MD; for sedation; 15:33:58 Heparin Bolus 5000 units I.V. was administered by Basilia Castellanos RN; for anticoagulation; 15:35:47 Inflate balloon Inflation number: 1 A EMERGE OTW 3.5 x 15 balloon ([id number]) was prepped and advanced across the Mid RCA, then inflated to 10 RONNI for 0:30 (min:sec). 15:36:10 Lopressor 5 mg I.V. was administered by Basilia Castellanos RN; for hypertension; 15:36:39 Inflation number: 2 The EMERGE OTW 3.5 x 15 balloon ([id number]) was reinflated across the Mid RCA, to 10 RONNI for 0:30 (min:sec). 15:38:09 Inflation number: 3 The EMERGE OTW 3.5 x 15 balloon ([id number]) was reinflated across the Mid RCA, to 12 RONNI for 0:30 (min:sec). 15:39:14 Balloon removed over the wire. 15:39:14 Wire removed. 15:39:15 Guide catheter removed. 15:39:18 TR BAND Standard ([id number]) opened to sterile field. 15:39:27 Sheath removed intact; hemostasis achieved with Mechanical Compression to the Right Radial artery. 15:39:29 Procedure ended.(Physican Out) 15:39:55 Fluoroscopy time 07.60 minutes. 15:39:59 Fluoroscopy dose: 1122 mGy 15:39:59 Flurop Dose total: 1122 15:40:03 Contrast amount:Isovue 300 81ml. 15:40:12 TR band inflated with 10cc of air. 15:40:13 Insertion/operative site no bleeding no hematoma. 15:40:18 Post right radial artery:stable 15:40:32 Post procedure rhythm: unchanged. 15:40:35 Estimated blood loss: 5 ml 15:40:36 Post procedure instruction explained to patient.Patient verbalizes understanding. 15:40:37 Patient needs reinforcement of post procedure teaching. 15:40:45 Procedure type changed to Cath procedure, Diagnostic procedure, LHC, LHC w/Coronaries, Sedation Charges, Moderate Sedation up to 15 minutes, PCI procedure, PTCA, PTCA Initial 15:41:07 Procedure and supply charges have been captured, reviewed, submitted and are correct. 15:41:11 Procedure Complication : No complications 15:41:13 Vital chart was stopped 15:41:14 See physician's report for complete and final results. 15:41:16 Report given to Med II. 15:41:23 Patient transfered to Med II with Stretcher. 15:41:25 Procedure ended. 15:41:25 Full Disclosure recording stopped 15:41:37 ACC-PCI Only Patient was given prescriptions, or instructed by Jake Espinoza MD to start/continue the following medications upon discharge: Plavix 15:41:39 End room use (Document Last) Intervention Summary Intervention Notes Time ActionType Lesion and Equipment Action# Pressure Duration Attributes Used 15:35:47 Inflate Mid RCA EMERGE OTW 1 10 00:30 balloon 3.5 x 15 balloon ([id number]) 15:36:39 Reinflate Mid RCA EMERGE OTW 2 10 00:30 balloon 3.5 x 15 balloon ([id number]) 15:38:09 Reinflate Mid RCA EMERGE OTW 3 12 00:30 balloon 3.5 x 15 balloon ([id number]) Device Usage Item Name Manufacture Quantity Catalog Number Hospital Part Current Min imal Lot# / Charge Number Stock Stock Serial# Code ACIST Acist 1 64495 [id number] [id number] 424049 20 Syringe Medical (30133) Systems Inc Medline Cath Medline 1 [id number] 256434 14041 077894 5 Pack ([id number]) Bag Decanter Microtek 1 2001S 837565 49440 137292 5 (2001S) Medical Inc. DIAGNOSTIC St Jatinder 1 953196 581024 707804 910114 30 WIRE .035 260cm J wire (841225) ACIST Hand Acist 1 91295 423662 234153 261175 5 Control Medical (74508) Systems Inc ACIST Acist 1 48893 338938 452765 741509 5 Manifold Medical (29814) Systems Inc Tegaderm 4 x 3M 1 1626W 379109 659438 317870 5 4 (1626W) MBrace Wrist Advanced 1 140-0250-00 647389 04084 702051 5 Support Vascular (923665689) Dynamics SHEATH 6FR Terumo 1 [id number] 307411 605738 166941 5 Slender (80-1060) DIAGNOSTIC Terumo 1 40-5013 499164 412692 948198 5 [place] 110cm 5 Fr catheter (962554) INFLATOR Merit 1 MZ8609 408622 404898 082361 15 [facility] Medical BasixCompak (XZ1182) WHISPER [place] 1 [id number] 605885 242091 889137 5 300cm guide Vascular wire ([id number]) GUIDE 6FR HS Medtronic 1 [id number] 851586 77415 623066 1 II SH catheter (HN0OXLRCG) EMERGE OTW Sultan 1 [id number] 957099 456997 812829 5 [id number] 3.5 x 15 Scientific balloon ([id number]) TR BAND Terumo 1 [id number] 352565 612135 712565 40 Standard ([id number]) Signature Audit Zephyr Stage Time Signature Unsigned Intra-Procedure 03/10/2019 Magaly Smith 3:45:04 PM RT(R) Signatures Monitor : Magaly Smith RT Signature : Date : Time : [facility] [address] [place] [address]
--- NOTE | ~2019-03-10 | OP ---
PATIENT NAME: FREDDIE SLOAN MEDICAL RECORD: [id number] :74 LOCATION:D.M2 D.2121 ADMISSION DATE:03/10/19 SURGEON: ROSS AUSTIN MD DATE OF OPERATION: 03/10/2019 PROCEDURE: Left heart catheterization, selective coronary angiography, right radial approach. CATHETERS: Radial sheath and [place] catheter. The procedure was well tolerated. The patient was returned to ibarra. Sheath was removed. TR band was placed. FINDINGS: Left ventriculography in 30-degree AUGUSTE view: Normal wall motion and normal systolic function. EF is greater than or equal to 55%. CORONARY ANATOMY: LEFT MAIN: Left main is free of disease. LAD: Free of disease in the diagonal system. CIRCUMFLEX: Free of disease in the marginal system. 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 PLAN: Intervention momentarily. DESCRIPTION OF PROCEDURE: Using indwelling radial sheath, hockey stick guiding catheter provided excellent guide catheter support followed by 300-cm Whisper wire. Balloon used was 3.5 x 15 mm Lares balloon up to finally 14 atmospheres for 45 seconds. Final angiography shows excellent resolution of 90% stenosis with no significant residual. BALDEMAR flow was 3 throughout the procedure. Heparin was used in the lab. The patient was previously on Plavix. Sheath was closed with TR band. TRANSINT:[id number] Voice Confirmation ID: [id number] DOCUMENT ID: [id number] ROSS AUSTIN MD CC: [id number] DICTATION DATE: 03/10/19 1545 BULB BRANDER: 03/10/192023 [place] [address]
[~2019-03-10 03:30] MED LIST changes: +HYDROCHLOROTHIA25 MG PO; +NEURONTIN 300300 MG PO; +TORADOL10 MG PO
[2019-03-10 04:17] LABS: BASOPHILS 0.1 % (0-2); EOSINOPHILS 1.6 % (0-7); HEMATOCRIT 38.9 % (42.0-54.0); HEMOGLOBIN 14.1 g/dL (13.5-17.5); IMMATURE GRANULOCYTES 0.5 % (0-5); LYMPHOCYTES 23.8 % (15-50); MCHC 36.2 g/dL (31.0-37.0); MCV 88.2 fL (80.0-100.0); MEAN PLATELET VOLUME 10.8 fL (7.4-10.4); MONOCYTES 10.6 % (2-11); NEUTROPHILS 63.4 % (40-80); PLATELET COUNT 117 10x3/uL (130-400); RBC 4.41 10x6/uL (4.20-6.10); RDW 13.7 % (11.5-14.5); WBC 7.3 10x3/uL (4.8-10.8)
[2019-03-10 04:27] LABS: APTT 30.1 SECONDS (22.8-39.4); INR 1.05 (0.85-1.17); PROTIME 13.2 SECONDS (11.6-15.0)
[2019-03-10 04:28] LABS: D-DIMER-QUANTITATIVE < 0.27 ug/mLFEU (0.20-0.54)
[2019-03-10 04:31] LABS: ALBUMIN 3.4 g/dL (3.4-5.0); ALKALINE PHOSPHATASE 83 U/L (46-116); ALT (SGPT) 46 U/L (10-68); BILIRUBIN - TOTAL 0.66 mg/dL (0.2-1.3); CALC OSMOLALITY 287 mosm/kg (275-300); CALCIUM 8.4 mg/dL (8.5-10.1); CARBON DIOXIDE 26.8 mmol/L (21.0-32.0); CHLORIDE - SERUM 101 mmol/L (98-107); CREATININE - SERUM 1.6 mg/dL (0.6-1.3); POTASSIUM - SERUM 3.2 mmol/L (3.5-5.1); PROTEIN - SERUM 6.6 g/dL (6.4-8.2); SODIUM 139 mmol/L (136-145); UREA NITROGEN 21 mg/dL (7-18); eGFR NON AFRICAN AMERICAN 50 mL/min (90-120)
[2019-03-10 04:32] LABS: GLUCOSE 227 mg/dL (74-106)
[2019-03-10 04:42] VITALS: BP 149/86
[2019-03-10 04:42] LABS: CKMB 0.7 U/L (0.0-3.6); CREATINE KINASE 69 UL (21-232); MAGNESIUM - SERUM 1.9 mg/dL (1.8-2.4); TROPONIN-I 0.027 ng/mL (0.000-0.060)
--- NOTE | 2019-03-10 06:32 | NUR ---
RECIEVED TRANSFER REPORT FROM ER. PT TRANSFERED ON WHEELCHAIR. PIV 20G L.A.C. BP 149/86 ON ASSESSMENT. PT IS A GOOD HISTORIAN. INITIAL ASSESMENT COMPLETED. IN NS INFUSING @125ML/HR. AAOX3. DENIES ANY FURTHER NEEDS AT THIS TIME. REPORT TRANSFERED TO INCOMING NURSE. WILL CPOC.
[2019-03-10 06:37] VITALS: BP 158/94; BMI 36.2
[2019-03-10 08:33] VITALS: BP 160/93
[2019-03-10 11:48] VITALS: BP 148/82
[2019-03-10 12:03] LABS: CKMB 1.2 U/L (0.0-3.6); CREATINE KINASE 62 UL (21-232); TROPONIN-I < 0.017 ng/mL (0.000-0.060)
[2019-03-10 12:07] VITALS: BMI 36.2
[2019-03-10 13:39] VITALS: Ht 185.4 cm; Wt 122.7 kg
--- NOTE | 2019-03-10 16:00 | NUR ---
BACK FROM [facility] RE[facility] COORDINATOR. V/S STABLE, TR BAND TO RIGHT WRIST WITH NO BLEEDING. FINGERS WARM. SEDATED BUT AWANKENS EASILY TELEMERTY SHOWS SR.
--- NOTE | 2019-03-10 16:04 | NUR ---
PT BACK FROM TITLE SPECIALIST. SEDATED.AWAKENS EASILY. VS STABLE, TELEMERTY SHOWS SR TR BAND INTACT. FINGERS WARM GOOD PULSE.SR UP WITH CALL LIGHT IN REACH
--- NOTE | 2019-03-10 18:25 | NUR ---
5 CC AIR REMOVED FROM TR BAND AND IT STARTED BLEEDING. AIR RETURNED WITH NO FUTHER BLEEDING
--- NOTE | 2019-03-10 19:10 | NUR ---
ALERT AND ORIENTED SKIN WARM AND DRY LCTA AND PT DENIES NEEDS AT THIS TIME.PRESSURE BAND IN PLACE ON RT WRIST. GOING TO LEAVE IN PLACE AT THIS TIME PER BLEEDING EARLIER..LEFT AC SL IS PATENT...BED IS LOCKED LOW SRX2 AND CALL LIGHT IS IN REACH...DENIES NEEDS OR CP AT THIS TIME
[2019-03-10 22:57] VITALS: BP 187/116
--- NOTE | 2019-03-10 22:58 | NUR ---
DUE TO BLEEDING PRESSUR HAS REMAINED IN PLACE...I LET 1/3 OF AIR OUT AT THIS TIME
[2019-03-11] VITALS: BP 120/70
--- NOTE | 2019-03-11 00:38 | NUR ---
COMPLETELY REMOVED PRESSURE DEVISE AND APLIED DRSG. NO ACTIVE BLEEDING
--- NOTE | 2019-03-11 06:09 | NUR ---
RECIEVED ORDERS FROM DR FARNAZ WAGNER TO GIVE PTS LISINOPRIL AND HCTZ NOW FOR A BP OF201/124...SKIN IS WARM AND DRY NO CP AT THIS TIME NO N/V PT REPORTS NO FACAIL TINGLING AND SITE OF CATH INSERTION ON RT WRIST REMAINS WITH DRSG INTACT AND NO BLEED THROUGH
[2019-03-11 06:22] LABS: BASOPHILS 0 % (0-2); EOSINOPHILS 0 % (0-7); HEMATOCRIT 41.7 % (42.0-54.0); HEMOGLOBIN 15.5 g/dL (13.5-17.5); IMMATURE GRANULOCYTES 0.6 % (0-5); LYMPHOCYTES 6.8 % (15-50); MCHC 37.2 g/dL (31.0-37.0); MEAN PLATELET VOLUME 11.5 fL (7.4-10.4); MONOCYTES 5.4 % (2-11); NEUTROPHILS 87.2 % (40-80); PLATELET COUNT 124 10x3/uL (130-400); RBC 4.84 10x6/uL (4.20-6.10); RDW 13.6 % (11.5-14.5)
[2019-03-11 06:23] LABS: ALBUMIN 3.5 g/dL (3.4-5.0); ANION GAP 11.4 mmol/L (8-16); BILIRUBIN - TOTAL 0.49 mg/dL (0.2-1.3); CALCIUM 8.7 mg/dL (8.5-10.1); CARBON DIOXIDE 27.3 mmol/L (21.0-32.0); CREATININE - SERUM 1.3 mg/dL (0.6-1.3); PROTEIN - SERUM 6.9 g/dL (6.4-8.2)
[2019-03-11 06:32] LABS: POTASSIUM - SERUM 3.7 mmol/L (3.5-5.1)
[2019-03-11 06:37] VITALS: BP 201/124
--- NOTE | 2019-03-11 06:39 | NUR ---
BP 203/126 CONTINUES WITH NO PAIN OR DISTRESS
[2019-03-11 06:55] LABS: MCV 86.2 fL (80.0-100.0); WBC 18.8 10x3/uL (4.8-10.8)
--- NOTE | 2019-03-11 07:35 | NUR ---
ASSESSMENT COMPLETED. ALERT AND ORIENTED. TELEMERTY SHOWS SR AT 87. RIGHT WRIST CATH SITE WITH DRSG DRY AND INTACT.UP AB CASSIDY.UA SENT TO LAB. LEFT AC SL. DENIES ANY NEEDS. WILL MONITOR
[2019-03-11 09:10] VITALS: BP 201/130
[2019-03-11 10:27] LABS: UDS - AMPHET NEGATIVE QUAL (NEGATIVE); UDS - BARB NEGATIVE QUAL (NEGATIVE); UDS - BENZO POSITIVE QUAL (NEGATIVE); UDS - COCAINE NEGATIVE QUAL (NEGATIVE); UDS - OPIATE NEGATIVE QUAL (NEGATIVE); UDS - PCP NEGATIVE QUAL (NEGATIVE); UDS - THC POSITIVE QUAL (NEGATIVE)
[2019-03-11 11:38] LABS: APPEARANCE CLEAR (CLEAR); BILIRUBIN NEGATIVE (NEGATIVE); COLOR YELLOW (YELLOW); GLUCOSE 500 mg/dL (NEGATIVE); KETONE NEGATIVE (NEGATIVE); NITRITE NEGATIVE (NEGATIVE); PROTEIN NEGATIVE (NEGATIVE); SPECIFIC GRAVITY 1.015 (1.005-1.020); UROBILINOGEN NORMAL (NORMAL)
--- NOTE | 2019-03-11 12:35 | NUR ---
Nutrition follow up Reviewed chart Changed diet from cardiac to diabetic and cardiac Pt ate 100% of cardiac diet last night BG [address] following
[2019-03-11 13:24] VITALS: BP 179/108
--- NOTE | 2019-03-11 14:13 | NUR ---
I have reviewed this patient and I concur with the Shift Assessment completed by the Licensed Practical Nurse today this shift.
[2019-03-11 17:05] VITALS: BP 181/105
--- NOTE | 2019-03-11 18:27 | NUR ---
LYING QUIETLY. DENIES ANY NEEDS. CATH SITE WITHOUT BLEEDING OR SWELLING. TELEMERTY SHOWS SR
--- NOTE | 2019-03-11 19:42 | NUR ---
ALERT AND OX4 VISITER IS WITH HIM IN ROOM RIGHT WRIST DMITRIY IS WITHIN NORMAL LIMITS ..I WILL NEED TO CHECK IV TO SEE IF PATENT THERE IS SOME BLOODY DRAINAGE AROUND INSERTION. LCTA AND SKIN WARM AND DRY. DENIES ANY PAIN OR NEEDS
[2019-03-11 20:00] VITALS: BP 168/104
--- NOTE | 2019-03-11 20:11 | NUR ---
IV FLUSHED WELL WITH NO PAIN OR EDEMA...BLOOD IS CONTAINED UNDER BANDAGE ...WILL LEAVE IN PLACE
[2019-03-12] VITALS: BP 159/80
--- NOTE | 2019-03-12 08:00 | NUR ---
ASSISTED TO CHAIR FOR BRK. TELEMETRY PACED. WILL CONT. PLAN OG VARE.
[2019-03-12 09:36] VITALS: BP 177/103
--- NOTE | 2019-03-12 10:00 | NUR ---
PT AT BS TO ASSIST WITH AMBLATING. WILL CONT. PLAN OF CARE.
--- NOTE | 2019-03-12 11:00 | NUR ---
CONSENTS SIGNED FOR [facility]. WILL CONT. PLAN OF CARE.
--- NOTE | 2019-03-12 12:27 | NUR ---
TELEMETRY SR. CALL LIGHT IN REACH. WILL CONT. PLAN OF CARE.
[2019-03-12 12:30] VITALS: BP 164/90
--- NOTE | 2019-03-12 12:47 | NUR ---
C/O ANXIETY FREDI BRIGGS NOTIFIED.
--- NOTE | 2019-03-12 13:29 | NUR ---
UP AMBULATING HALLWAY. GAIT STEADY.
[2019-03-12 13:38] LABS: HEMATOCRIT 44.7 % (42.0-54.0); HEMOGLOBIN 16.4 g/dL (13.5-17.5); MCH 32.5 pg (26.0-34.0); MCHC 36.7 g/dL (31.0-37.0); MEAN PLATELET VOLUME 11.1 fL (7.4-10.4); PLATELET COUNT 123 10x3/uL (130-400); RBC 5.05 10x6/uL (4.20-6.10); RDW 13.9 % (11.5-14.5)
[2019-03-12 13:41] LABS: MCV 88.5 fL (80.0-100.0)
[2019-03-12 13:50] LABS: ALBUMIN 3.5 g/dL (3.4-5.0); ANION GAP 14.1 mmol/L (8-16); BILIRUBIN - TOTAL 0.63 mg/dL (0.2-1.3); CALCIUM 8.6 mg/dL (8.5-10.1); CARBON DIOXIDE 26.2 mmol/L (21.0-32.0); CREATININE - SERUM 1.6 mg/dL (0.6-1.3); POTASSIUM - SERUM 3.3 mmol/L (3.5-5.1)
[2019-03-12 14:19] LABS: EOSINOPHILS 1 % (0-7); LYMPHOCYTES 11 % (15-50); MONOCYTES 13 % (2-11); NEUTROPHILS 72 % (40-80); PLATELET ESTIMATE NORMAL
[2019-03-12 16:48] VITALS: BP 131/81
[2019-03-12] MEDS ORDERED: KLONOPIN1 MG PO (17:02)
[2019-03-12] MEDS ORDERED: COREG25 MG PO (17:28)
--- NOTE | 2019-03-12 17:52 | NUR ---
IV AND TELEMETRY DCD. DC PLANS GIVEN. UNDERSTANDING VOICED.
--- NOTE | 2019-03-14 08:37 | MORECARE ---
CASE MANAGEMENT DISCHARGE SUMMARY PATIENT: FREDDIE SLOAN UNIT: [id number] ADM DATE: 03/11/19 AGE: 48 : 74 SEX: M ROOM/BED: D.2121 AUTHOR: ALONA LÓPEZ PHYSICIAN: REFERRING PHYSICIAN: TAMMY GRULLON MD DATE OF SERVICE: 03/14/19 Discharge Plan Patient Name: FREDDIE SLOAN Facility: [facility]:Distant : 1970 Planned Disposition: Home Anticipated Discharge Date: 03/12/19 Discharge Date: 03/12/2019 Expected LOS: 1 Initial Reviewer: [email or web address] Initial Review Date: 03/12/2019 Generated: 03/14/19 9:37 am Comments DCP- Discharge Planning Updated by [email or web address]: Georgette Perez on 03/12/19 5:[address] CM NOTIFIED BY STREET DEPARTMENT DISPATCHER OF DISCHARGE ORDERS. CM WENT TO VISIT W/ THE PATIENT. HE IS DRESSED AND READY FOR DISCHARGE. THE GENTLEMAN PROVIDING TRANSPORTATION IS AT THE BEDSIDE. CM EXPLAINED THE DISCHARGE IMM. PATIENT STATED HE REMEMBERS THAT PAPERWORK. HE REVIEWED THE FORM AND SIGNED. COPY TO HIS CHART AND PATIENT HAS A COPY. PATIENT RECEIVED HIS DISCHARGE PAPERWORK. AMBULATED OF THE UNIT WITH HIS FRIEND. NO APPARENT NEED.. Coverage Notice Reviewer: [email or web address] - Georgette Perez Notice Issued Date-Time: 03/12/2019 17:45 Notice Type: IM Discharge Notice Notice Delivered To: Patient Relationship to Patient: Self Veterinary Technology Instructor Name: Delivery Method: HAND - Hand Delivered Traci Days: Prior Verbal Notification: Recipient Understood Notice: Yes Recipient Signature: Yes Med Rec Note Co-signed by Attending: Coverage Notice Comment: CM explained discharge IMM. Patient stated he understood. Discharge IMM served. Copy to the patient. Signed copy to the chart Patient Name: FREDDIE SLOAN Page [phone] at 0837 All edits/amendments must be made on the electronic document DICTATION DATE: 03/14/19 0837 APPOINTMENT SCHEDULER: NGUYEN 03/14/19 0837 RPT#: [id number] DC DATE:03/12/19 STATUS: DIS IN [facility] [address] [place] [address] END OF REPORT
== END 2019-03-12 17:53 | disposition home or self-care (01) | DRG 287 ==
LOC: D.ER 03:30 → OBSVTIME 05:04 → D.M2 05:04
PROVIDERS: Family Medicine; Internal Medicine Interventional Cardiology; ADMIT Internal Medicine Nephrology; ATTEND Internal Medicine Nephrology
PROC: 4A023N7 Measurement of Cardiac Sampling and Pressure, Left Heart, Percutaneous Approach (ICD-10-PCS; 2019-03-10)
PROC: B2111ZZ Fluoroscopy of Multiple Coronary Arteries using Low Osmolar Contrast (ICD-10-PCS; principal; 2019-03-10 14:49)
PROC: B2151ZZ Fluoroscopy of Left Heart using Low Osmolar Contrast (ICD-10-PCS; 2019-03-10 14:49)
DX: I25.110 Atherosclerotic heart disease of native coronary artery with unstable angina pectoris (principal); N17.9 Acute kidney failure, unspecified; T82.855A Stenosis of coronary artery stent, initial encounter; E87.6 Hypokalemia; I10 Essential (primary) hypertension; E78.5 Hyperlipidemia, unspecified; K21.9 Gastro-esophageal reflux disease without esophagitis; D69.6 Thrombocytopenia, unspecified; Y83.8 Other surgical procedures as the cause of abnormal reaction of the patient, or of later complication, without mention of misadventure at the time of the procedure

== ENCOUNTER 2019-03-23 20:18 | Emergency (ER) | payer MEDICARE ==
[~2019-03-23] VITALS: Ht 185.4 cm; Wt 120.9 kg
[~2019-03-23 20:18] MED LIST changes: +COREG25 MG PO; +KLONOPIN1 MG PO
[2019-03-23 20:20] VITALS: Ht 185.4 cm; Wt 120.9 kg
[2019-03-23] MEDS ORDERED: SULFAMETHOXAZOL1 TA3 PO (20:22)
[2019-03-23] MEDS ORDERED: ROBAXIN500 MG PO (21:26)
[2019-03-23] MEDS ORDERED: TORADOL10 MG PO (21:26)
[2019-03-23 21:45] VITALS: BP 150/95
== END 2019-03-23 21:46 | disposition home or self-care (01) ==
LOC: D.ER 20:18
DX: S80.01XA Contusion of right knee, initial encounter (principal); W18.30XA Fall on same level, unspecified, initial encounter; Y93.89 Activity, other specified; Y92.019 Unspecified place in single-family (private) house as the place of occurrence of the external cause; M62.830 Muscle spasm of back; S73.101A Unspecified sprain of right hip, initial encounter

== ENCOUNTER → 2019-05-16 07:48 | Outpatient (CLI) | payer MEDICARE ==
[2019-03-23 20:20] VITALS: BMI 35.1
[~2019-05-16 07:48] MED LIST changes: +ROBAXIN500 MG PO; +SULFAMETHOXAZOL1 TA3 PO
== END | disposition home or self-care (01) ==
LOC: D.MRI 07:48
PROVIDERS: ATTEND Nurse Practitioner Family
DX: S83.411A Sprain of medial collateral ligament of right knee, initial encounter (principal); X58.XXXA Exposure to other specified factors, initial encounter

== ENCOUNTER 2019-08-12 07:50 | Day surgery (SDC) | payer MEDICARE ==
[2019-08-11 14:42] LABS: HEMOGLOBIN 15.5 g/dL (13.5-17.5); MCH 32.7 pg (26.0-34.0); MCV 90.7 fL (80.0-100.0); MEAN PLATELET VOLUME 11.1 fL (7.4-10.4); RBC 4.74 10x6/uL (4.20-6.10); RDW 13.5 % (11.5-14.5)
[~2019-08-12] VITALS: Ht 185.4 cm; Wt 115.7 kg
[2019-08-12 08:09] VITALS: Ht 185.4 cm; Wt 115.7 kg
[2019-08-12] MEDS ORDERED: PERCOCET 5-3251 TAB PO (10:12)
--- NOTE | 2019-08-12 15:29 | OP ---
PATIENT NAME: FREDDIE HOWARD MEDICAL RECORD: [id number] LOCATION:[facility] ADMISSION DATE: SURGEON: LEVI HOOPER DO DATE OF OPERATION: 08/12/2019 PROCEDURE PERFORMED: Right knee arthroscopy with partial medial and partial lateral meniscectomies PREOPERATIVE DIAGNOSIS: Right knee medial meniscus tear. POSTOPERATIVE DIAGNOSES: Right knee medial meniscus tear with lateral meniscal tear. INDICATIONS: Mr. Howard is a 48-year-old male who had MRIs quite some time ago showing a meniscal tear in the medial meniscus, but he has had cardiac problems. Once he was cleared for surgery, he wanted something done surgically due to the fact that it was affecting his activities of daily living. He was tired of it catching, popping and locking and the knee pain. He was aware of the risks including infection, bleeding, damage to nerves and vessels. He did not stop his Plavix or aspirin and he is aware of the fact that he could easily get a knee effusion from it, but he wanted to proceed with the procedure. I informed him of that risk and would increase his risk for bleeding and infection, he was okay with that. He was aware of the risks and signed the consent. SURGEON: Levi Hooper DO DESCRIPTION OF PROCEDURE: The patient was taken to the operative suite, laid in supine position, given 2 grams of Ancef preoperatively. The right lower extremity was prepped and draped in sterile fashion. A timeout was performed and everyone was in agreement with the correct side, site, patient and procedure. The knee was then injected in the anterior medial and anterior lateral portal sites with 0.5% Marcaine with epinephrine with 4 mL in each. Once that was completed, the lateral portal was incised with an 11-blade scalpel and trocar was entered into the knee. Once the trocar was entered into the knee, the suprapatellar pouch was inspected as well as the medial and lateral gutters. No loose bodies were seen in them and the knee was then flexed down. The medial compartment was then entered. An 18-gauge spinal needle and 11 blade scalpel was used then to establish the medial portal and the probe was brought in and the meniscal tear was seen in the posterior horn of the medial meniscus. The biter and shaver was then used to trim it back to a stable position. The probe was then brought back in and the meniscus was probed and no tears were seen after trimming it out. The ACL was then probed and seen to be in good position. The lateral compartment was then entered as the knee was [id number]. No tear was seen in the middle horn. The middle section of the lateral meniscus was trimmed out and chewed out with a shaver. Once this was back to a stable point, the shaver was removed and the scope was then put back up in the suprapatellar pouch and then the patella and trochlear aspects of the knee were inspected. No loose bodies were seen in them and there was no chondromalacia. There was little to no chondromalacia seen in the knee. Water was then turned off. Suction was turned on. The scope was removed from the knee and the patient was awakened and taken to recovery in stable condition. ESTIMATED BLOOD LOSS: Minimal. OPERATIVE REPORT [id number] FREDDIE HOWARD COMPLICATIONS: None. TRANSINT:[id number] Voice Confirmation ID: [id number] DOCUMENT ID: [id number] LEVI HOOPER DO at 1529 CC: [id number] DICTATION DATE: 08/12/19 1045 E LEARNING DEVELOPER: 08/12/19 1242 [facility] 08/12/19 [facility] [address] [place] [address]
== END 2019-08-12 12:15 | disposition home or self-care (01) ==
LOC: D.OPS 07:50 → D.PAN 10:00 → D.OPS 10:00 → D.PAN 10:10 → D.OPS 10:10 → D.PAN 12:45 → D.OPS 12:45
PROVIDERS: Anesthesiology; ATTEND Orthopaedic Surgery
DX: S83.241A Other tear of medial meniscus, current injury, right knee, initial encounter (principal); S83.281A Other tear of lateral meniscus, current injury, right knee, initial encounter; X58.XXXA Exposure to other specified factors, initial encounter

== ENCOUNTER 2020-01-30 23:20 | Emergency (ER) | payer MEDICARE ==
[~2020-01-30] VITALS: Ht 185.4 cm; Wt 118.2 kg
[~2020-01-30 23:20] MED LIST changes: +PERCOCET 5-3251 TAB PO
[2020-01-30 23:30] VITALS: Ht 185.4 cm; Wt 118.2 kg
[2020-01-31] MEDS ORDERED: DEBROX OTIC15 ML EACH EAR (01:37)
[2020-01-31 01:53] VITALS: BP 140/87
== END 2020-01-31 01:54 | disposition home or self-care (01) ==
LOC: D.ER 23:20
DX: S00.411A Abrasion of right ear, initial encounter (principal); X58.XXXA Exposure to other specified factors, initial encounter; H61.21 Impacted cerumen, right ear; I10 Essential (primary) hypertension; I25.2 Old myocardial infarction; Z95.5 Presence of coronary angioplasty implant and graft; I25.10 Atherosclerotic heart disease of native coronary artery without angina pectoris; E78.5 Hyperlipidemia, unspecified; K21.9 Gastro-esophageal reflux disease without esophagitis; N18.3 Chronic kidney disease, stage 3 (moderate)